=== PATIENT | male | born 1945 ===

== ENCOUNTER 2017-02-02 15:18 | Emergency (ER) | payer MEDICARE ==
[2017-02-02 15:35] VITALS: BP 171/94; PULSE 86; RESP 16; TEMP 98; O2SAT 98
--- NOTE | 2017-02-02 15:43 | ED PDOC ---
Upper Extremity Pain/Injury Time Seen by Provider: 02/02/17 15:41 Chief Complaint (Nursing): Upper Extremity Problem/Injury Chief Complaint (Provider): left arm pain History Per: Patient (71 y/o male here s/p fall 2 hours ago on outstretched left hand. Notes moderate pain in right arm/shoulder. No prior fx. No head injury. Denies any use of blood thinners. Was given motrin 2 tablets prior to ED arrival.) Past Medical History Reviewed: Historical Data, Nursing Documentation, Vital Signs Vital Signs: Last Vital Signs Temp 98.0 F 02/02/17 15:31 Pulse 86 02/02/17 15:31 Resp 16 02/02/17 15:31 BP 171/94 H 02/02/17 15:31 Pulse Ox 98 02/02/17 15:31 - Family History Family History: States: No Known Family Hx - Home Medications Home Medications: Ambulatory Orders Medication Instructions Recorded No Known Home Med 02/02/17 oxyCODONE/Acetaminophen [Percocet 1 ea PO Q6 PRN #8 tab 02/02/17 5/325 mg Tab] - Allergies Allergies/Adverse Reactions: Allergies Allergy/AdvReac Type Severity Reaction Status Date / Time No Known Allergies Allergy Verified 02/02/17 15:30 Review of Systems ROS Statement: Except As Marked, All Systems Reviewed And Found Negative Musculoskeletal: Positive for: Shoulder Pain Physical Exam - Reviewed Nursing Documentation Reviewed: Yes Vital Signs Reviewed: Yes - Physical Exam Appears: Positive for: Well, Non-toxic, No Acute Distress Head Exam: Positive for: ATRAUMATIC, NORMAL INSPECTION, NORMOCEPHALIC Skin: Positive for: Normal Color, Warm, DRY Eye Exam: Positive for: EOMI, Normal appearance, PERRL ENT: Positive for: Normal ENT Inspection Neck: Positive for: Normal, Painless ROM Cardiovascular/Chest: Positive for: Regular Rate, Rhythm Respiratory: Positive for: CNT, Normal Breath Sounds Gastrointestinal/Abdominal: Positive for: Normal Exam, Bowel Sounds, Soft Back: Positive for: Normal Inspection Extremity: Positive for: Tenderness (left proximal arm tenderness. Nontender elbow. Nontender wrist. Able to move digits without difficulty.). Negative for : Normal ROM (limited shoulder motion) Neurologic/Psych: Positive for: Alert, Oriented - ECG O2 Sat by Pulse Oximetry: 98 - Progress ED Course And Treament: Tylenol 650mg x 1 dose Xry of shoulder: communited fx of proximal humerus with avulsion of greater tuberosity d/w Dr. Dwyre 17:00. patient to be d/c home and f/u with CD of xry and CT results. Medical Decision Making Medical Decision Makin:49 X-ray left shoulder FINDINGS: BONES: Impacted, acute fracture right humerus with avulsion of the greater tuberosity. JOINTS: Normal. Glenohumeral and acromioclavicular joints preserved. No osteoarthritis. SOFT TISSUES: Soft tissue swelling attests to the acuity of the fracture. OTHER FINDINGS: None. IMPRESSION: Acute, comminuted impaction fracture proximal right humerus. Avulsion of greater tuberosity identified. 16:50 X-ray left humerus FINDINGS: Impacted, comminuted fracture proximal left humerus. Avulsed fracture fragments greater tuberosity. IMPRESSION: Acute proximal humeral fracture. No distal humeral abnormalities. 17:50 CT left upper extremity FINDINGS: Impacted, comminuted fracture proximal left humerus. Fracture fragments include multiple the emanating from the lateral humeral head and total avulsion of the greater tuberosity. Multiple smaller fracture fragments affect humeral head and humeral neck. There is no appreciable angulation or distraction. Preservation of glenohumeral relationship identified. Unremarkable acromioclavicular joint. No adjacent abnormalities with respect to the scaphoid. Adjacent visualized ribs are within normal limits. No pulmonary parenchymal abnormalities identified. Soft tissue swelling attests to the acuity of the fracture. IMPRESSION: Acute, comminuted fracture affecting left humeral head and neck with avulsion of the greater tuberosity. Disposition - Clinical Impression Clinical Impression: Humerus fracture - Patient ED Disposition Is Patient to be Admitted: No - Disposition Referrals: James Dwyer III, MD [Staff Provider] - Disposition: Routine/Home Disposition Time: 17:58 Condition: FAIR Prescriptions: oxyCODONE/Acetaminophen [Percocet 5/325 mg Tab] 1 ea PO Q6 PRN #8 tab PRN Reason: Pain, Severe (8-10) Instructions: Arm Fracture in Adults (ED) Forms: [facility] ED School/Work Excuse
--- NOTE | 2017-02-02 16:51 | RAD ---
PROCEDURE: Radiographs of the Left Shoulder HISTORY: shoulder injury COMPARISON: No prior. FINDINGS: BONES: Impacted, acute fracture right humerus with avulsion of the greater tuberosity. JOINTS: Normal. Glenohumeral and acromioclavicular joints preserved. No osteoarthritis. SOFT TISSUES: Soft tissue swelling attests to the acuity of the fracture. OTHER FINDINGS: None. IMPRESSION: Acute, comminuted impaction fracture proximal right humerus. Avulsion of greater tuberosity identified.
--- NOTE | 2017-02-02 16:52 | RAD ---
PROCEDURE: Left humerus HISTORY: injury COMPARISON: February 02, 2017. TECHNIQUE: Standard protocol for this study/examination. FINDINGS: Impacted, comminuted fracture proximal left humerus. Avulsed fracture fragments greater tuberosity. IMPRESSION: Acute proximal humeral fracture. No distal humeral abnormalities.
--- NOTE | 2017-02-02 17:51 | CT ---
PROCEDURE: Left upper extremity CT scan. HISTORY: FX OF HUMERUS PROXIMAL COMPARISON: None available. TECHNIQUE: 1.25 mm axial acquisition and display. Coronal and sagittal reconstructions. Radiation dosimetry DLP (mGy-cm) 276.17. This CT exam was performed using one or more of the following dose reduction techniques: Automated exposure control, adjustment of the mA and/or kV according to patient size, and/or use of iterative reconstruction technique. FINDINGS: Impacted, comminuted fracture proximal left humerus. Fracture fragments include multiple the emanating from the lateral humeral head and total avulsion of the greater tuberosity. Multiple smaller fracture fragments affect humeral head and humeral neck. There is no appreciable angulation or distraction. Preservation of glenohumeral relationship identified. Unremarkable acromioclavicular joint. No adjacent abnormalities with respect to the scaphoid. Adjacent visualized ribs are within normal limits. No pulmonary parenchymal abnormalities identified. Soft tissue swelling attests to the acuity of the fracture. IMPRESSION: Acute, comminuted fracture affecting left humeral head and neck with avulsion of the greater tuberosity.
== END 2017-02-02 18:26 | disposition home or self-care (01) ==
LOC: H.ER 15:18
DX: S42.302A Unspecified fracture of shaft of humerus, left arm, initial encounter for closed fracture (principal); W19.XXXA Unspecified fall, initial encounter; Y92.89 Other specified places as the place of occurrence of the external cause